=== PATIENT | female | born 1960 | race Caucasian/White ===

== ENCOUNTER 2023-09-22 10:12 | Inpatient (IN) ==
[2023-09-22] MEDS: 0.9 % SODIUM CHLORIDE 1,000 ML IV SCH (10:37)
[2023-09-22 10:50] LABS: Basophils # (Auto) 0.03 K/mcL (0.00-0.30); Basophils % (Auto) 0.3 % (0.0-2.0); Eosinophils # (Auto) 0.07 K/mcL (0.00-0.70); Eosinophils % (Auto) 0.7 % (0.0-7.0); Hematocrit 29.6 % (34.1-44.9); Hemoglobin 9.8 g/dL (11.2-15.7); Lymphocytes # (Auto) 1.69 K/mcL (1.50-4.80); Lymphocytes % (Auto) 17.3 % (15.5-49.0); Mean Cell Volume 103.1 fL (80.0-100.0); Mean Corpuscular HGB Conc 33.1 g/dL (31.0-36.0); Mean Platelet Volume 10.2 fL (8.8-12.5); Monocytes # (Auto) 0.67 K/mcL (0.10-0.90); Monocytes % (Auto) 6.9 % (1.0-12.0); Neutrophils % (Auto) 74.5 % (38.0-78.0); Platelet Count 143 K/mcL (140-440); RBC 2.87 M/mcL (3.59-5.38); Red Cell Distribution Width 25.3 % (11.5-14.5); WBC 9.8 K/mcL (4.5-11.0)
[2023-09-22 11:07] LABS: Alcohol, Blood < 10.1 mg/dL; Alcohol,Blood < 0.010 gm/dL (<0.010)
[2023-09-22 11:09] LABS: ALT/SGPT 17 U/L (<40); AST/SGOT 55 U/L (<32); Albumin 2.8 gm/dL (3.2-5.2); Albumin/Globulin Ratio 0.7 (1.0-2.3); Alkaline Phosphatase 140 U/L (39-117); Bilirubin,Total 1.5 mg/dL (0.1-1.0); Blood Urea Nitrogen 26 mg/dL (8-23); Calcium 10.6 mg/dL (8.6-10.4); Carbon Dioxide 11 mmol/L (22-30); Chloride 131 mmol/L (96-108); Globulin 4.2 gm/dL (2.2-3.7); Glomerular Filtration Rate 23; Glucose 94 mg/dL (70-105)
[2023-09-22 11:13] LABS: POC Calcium, Ionized 1.55 (1.16-1.32); POC Creatinine 2.4 (0.6-1.2); POC Potassium 3.7 (3.3-5.1)
[2023-09-22] MEDS: THIAMINE 100 MG/ML VIAL ONE (11:14)
[2023-09-22] MEDS: THIAMINE 100 MG in 0.9 % SODIUM CHLORIDE 50 ML IV ONE (11:14)
[2023-09-22] MEDS: LACTULOSE 20 GM/30 ML ORAL.SOL PO ONE (11:14)
[2023-09-22 11:35] LABS: Acetaminophen < 5.0 ug/mL
[2023-09-22] MEDS: LACTATED RINGERS 1,000 ML IV SCH (12:44)
[2023-09-22 15:08] LABS: INR 2.1 (0.9-1.1); Prothrombin Time 24.9 sec (11.9-14.5)
[2023-09-22] MEDS: ALBUMIN HUMAN 25 GM/100 ML BAG IV ONE (15:47)
[2023-09-22 16:38] LABS: Blood Urea Nitrogen 26 mg/dL (8-23); Calcium 9.7 mg/dL (8.6-10.4); Carbon Dioxide 12 mmol/L (22-30); Chloride 132 mmol/L (96-108); Glomerular Filtration Rate 25; Glucose 92 mg/dL (70-105)
[2023-09-22] MEDS ORDERED: MAGNESIUM SULFATE 2 GM/50 ML BAG IV PRN (17:00)
[2023-09-22] MEDS ORDERED: POTASSIUM CHLORIDE 20 MEQ TABLET PO PRN ×2 (17:00)
[2023-09-22] MEDS ORDERED: ONDANSETRON 4 MG/2 ML VIAL IV PRN (17:00)
[2023-09-22] MEDS ORDERED: LABETALOL HCL 20 MG/4 ML VIAL IV PRN (17:00)
[2023-09-22] MEDS ORDERED: LACTULOSE 20 GM/30 ML ORAL.SOL PO PRN (17:00)
[2023-09-22] MEDS ORDERED: SENNOSIDES 1 TABLET PO PRN (17:00)
[2023-09-22] MEDS ORDERED: POTASSIUM CHLORIDE 40 MEQ in DEXTROSE 5% IN WATER 500 ML IV PRN (17:00)
[2023-09-22] MEDS ORDERED: IPRATROPIUM/ALBUTEROL 3 ML AMPUL.NEB NEB PRN (17:00)
[2023-09-22] MEDS ORDERED: POLYETHYLENE GLYCOL 3350 17 GM PACKET PO PRN (17:00)
[2023-09-22 17:27] LABS: LDH,Peritoneal Fluid 31 U/L; Total Protein,Peritoneal Fluid 0.4 gm/dL
[2023-09-22 18:06] LABS: Mesothelial,Peritoneal Fluid 28 %; Monocyte,Peritoneal Fluid 46 %; Neutrophils,Peritoneal Fluid 10 %; Nucleated Cel,Peritoneal Fluid 16 /cumm; RBC,Peritoneal Fluid <50,000 /cumm
[2023-09-22] MEDS: 0.45 % SODIUM CHLORIDE 1,000 ML IV SCH (20:52)
[2023-09-23 06:52] LABS: ALT/SGPT 6 U/L (<40); AST/SGOT 48 U/L (<32); Albumin 2.7 gm/dL (3.2-5.2); Albumin/Globulin Ratio 0.8 (1.0-2.3); Alkaline Phosphatase 108 U/L (39-117); Bilirubin,Direct 0.7 mg/dL (<0.3); Bilirubin,Total 1.2 mg/dL (0.1-1.0); Blood Urea Nitrogen 27 mg/dL (8-23); Calcium 9.9 mg/dL (8.6-10.4); Carbon Dioxide 11 mmol/L (22-30); Chloride 132 mmol/L (96-108); Globulin 3.3 gm/dL (2.2-3.7); Glomerular Filtration Rate 25; Glucose 75 mg/dL (70-105); Lactate Dehydrogenase 251 U/L (135-225); Phosphorous 4.4 mg/dL (2.5-4.5); Triglycerides 63 mg/dL (<150); Uric Acid 9.6 mg/dL (2.5-8.0)
[2023-09-23] MEDS ORDERED: METHOCARBAMOL 750 MG TABLET PO PRN (08:00)
[2023-09-23] MEDS ORDERED: NITROGLYCERIN 0.4 MG TAB.SUBL SL PRN (08:00)
[2023-09-23 08:16] LABS: Basophils # (Auto) 0.02 K/mcL (0.00-0.30); Basophils % (Auto) 0.3 % (0.0-2.0); Eosinophils # (Auto) 0.17 K/mcL (0.00-0.70); Eosinophils % (Auto) 2.5 % (0.0-7.0); Hematocrit 28.8 % (34.1-44.9); Hemoglobin 8.8 g/dL (11.2-15.7); Lymphocytes # (Auto) 1.34 K/mcL (1.50-4.80); Lymphocytes % (Auto) 19.9 % (15.5-49.0); Mean Cell Volume 114.7 fL (80.0-100.0); Mean Corpuscular HGB Conc 30.6 g/dL (31.0-36.0); Monocytes # (Auto) 0.66 K/mcL (0.10-0.90); Monocytes % (Auto) 9.8 % (1.0-12.0); Neutrophils % (Auto) 67.2 % (38.0-78.0); Platelet Count 102 K/mcL (140-440); RBC 2.51 M/mcL (3.59-5.38); WBC 6.7 K/mcL (4.5-11.0)
[2023-09-23] MEDS: DEXTROSE 5% IN WATER 250 ML IV ONE (08:38)
[2023-09-23] MEDS: ENOXAPARIN 30 MG/0.3 ML SYRINGE SQ SCH (08:39)
[2023-09-23] MEDS: NADOLOL 20 MG TABLET PO SCH (08:40)
[2023-09-23] MEDS: PANTOPRAZOLE 40 MG TABLET PO SCH (08:40)
[2023-09-23] MEDS: busPIRone 5 MG TABLET PO SCH (08:40)
[2023-09-23] MEDS: VENLAFAXINE 75 MG CAP.XL.24H PO SCH (08:40)
[2023-09-23] MEDS: LACTULOSE 20 GM/30 ML ORAL.SOL PO SCH (08:40)
[2023-09-23] MEDS ORDERED: morphine 4 MG/ML VIAL NEB PRN (11:05)
[2023-09-23] MEDS ORDERED: LACTOPEROXI/GLUC OXID/POT THIO 1 EACH GEL..EA. TOPICAL PRN (11:05)
[2023-09-23] MEDS: LORazepam 2 MG/ML VIAL IV PRN (11:14)
[2023-09-23] MEDS: morphine 4 MG/ML VIAL IV PRN (11:14)
[2023-09-23] MEDS: 0.9 % SODIUM CHLORIDE 10 ML SYRINGE IV SCH (14:24)
[2023-09-23] MEDS: DOCUSATE SODIUM 100 MG CAPSULE PO SCH (20:31)
[2023-09-23] MEDS ORDERED: MELATONIN 3 MG TABLET PO PRN (21:00)
[2023-09-23] MEDS ORDERED: GABAPENTIN 300 MG CAPSULE PO SCH (21:00)
[2023-09-25] MEDS: SCOPOLAMINE 1 PATCH PATCH TOPICAL SCH (12:49)
== END 2023-09-26 01:05 | disposition expired | DRG 432 ==
LOC: ED 10:12 → ICU 16:32 → MEDSUR 09-24 13:08
PROVIDERS: ADMIT Internal Medicine; ATTEND Internal Medicine